=== PATIENT | female | born 1960 | race Caucasian/White ===

== ENCOUNTER 2018-03-18 11:39 | Emergency (ER) | payer OTHER ==
[2018-03-18] MEDS ORDERED: BABY ASPIRIN 81 MG CHEW PO ONE (12:01)
--- NOTE | 2018-03-18 12:01 | ERPHSYRPT ---
- History of Present Illness Time Seen by Provider: 03/18/18 11:59 Historian: patient, family Exam Limitations: no limitations Physician History: 58 y/o white female with known asthma and htn hx presents with one day h/o central substernal cp without radiation. pt has no known cardiac dz. pt did not take any asa this am. pt did take her bp med last pm. pt has no known cardiac hx. Timing/Duration: day(s) (1) Activities at Onset: none Quality: sharpness (with cough) Location: substernal, central Chest Pain Radiation: no radiation Severity of Pain-Max: mild Severity of Pain-Current: mild Modifying Factors: Improves With: coughing. Worsens With: change in position Associated Symptoms: shortness of breath, cough, No nausea, No vomiting Prior Chest Pain/Cardiac Workup: no prior chest pain, no prior cardiac workup Nitro Today/Relief: no nitro taken today Aspirin Treatment Today: no aspirin today Allergies/Adverse Reactions: No Known Drug Allergies Allergy (Unverified 03/18/18 12:11) Home Medications: Albuterol Common Canister [Proventil Common Canister] 90 mcg IH UD [History] Cetirizine HCl [Zyrtec] 10 mg PO DAILY 03/18/18 [History] Diltiazem HCl [Matzim LA] 240 mg PO HS 03/18/18 [History] Mometasone/Formoterol [Dulera 100 Mcg/5 Mcg Inhaler] 100 mg IH DAILY 03/18/18 [ History] - Review of Systems Constitutional: No Symptoms Eyes: No Symptoms Ears, Nose, & Throat: No Symptoms Respiratory: Cough, Wheezing Cardiac: Chest Pain (with coughing) Abdominal/Gastrointestinal: No Symptoms, No Abdominal Pain, No Nausea, No Vomiting, No Diarrhea Genitourinary Symptoms: No Symptoms, No Dysuria, No Frequency, No Hematuria Musculoskeletal: No Symptoms Skin: No Symptoms Neurological: No Symptoms Psychological: No Symptoms Endocrine: No Symptoms Hematologic/Lymphatic: No Symptoms Immunological/Allergic: No Symptoms All Other Systems: Reviewed and Negative - Past Medical History Neurological History: No Pertinent History ENT History: No Pertinent History Cardiac History: Hypertension Respiratory History: Asthma Endocrine Medical History: No Pertinent History Musculoskeletal History: No Pertinent History GI Medical History: No Pertinent History History: No Pertinent History Psycho-Social History: No Pertinent History Female Reproductive Disorders: No Pertinent History - Past Surgical History Neuro Surgical History: No Pertinent History Cardiac: No Pertinent History Respiratory: No Pertinent History Gastrointestinal: No Pertinent History Genitourinary: No Pertinent History Musculoskeletal: No Pertinent History Female Surgical History: No Pertinent History - Nursing Vital Signs Nursing Vital Signs: Initial Vital Signs Temperature 98 F 03/18/18 11:59 Pulse Rate 89 03/18/18 11:59 Respiratory Rate 18 03/18/18 11:59 Blood Pressure 181/88 03/18/18 11:59 O2 Sat by Pulse Oximetry 96 03/18/18 11:59 Pain Scale Pain Intensity 5 - Physical Exam General Appearance: no apparent distress, alert, anxiety Eye Exam: PERRL/EOMI, eyes nml inspection Ears, Nose, Throat Exam: normal ENT inspection, moist mucous membranes Neck Exam: normal inspection, non-tender, supple, full range of motion Respiratory Exam: chest tenderness (with coughing), airway intact, wheezing ( bilat exp ), No accessory muscle use, No rhonchi, No stridor Cardiovascular Exam: regular rate/rhythm, normal heart sounds, normal peripheral pulses Gastrointestinal/Abdomen Exam: soft, normal bowel sounds, No tenderness, No guarding, No rebound Pelvic Exam: not done Rectal Exam: not done Back Exam: normal inspection, normal range of motion, No CVA tenderness, No vertebral tenderness Extremity Exam: normal inspection, normal range of motion, pelvis stable Neurologic Exam: alert, oriented x 3, cooperative, sour bleaching pleater II-XII nml as tested Skin Exam: normal color, warm, dry Lymphatic Exam: No adenopathy SpO2 Interpretation: normal Oxygen Delivery: Room Air - Course Nursing assessment & vital signs reviewed: Yes EKG Interpreted by Me: RATE ([id number]), Sinus Rhythm, NORMAL INTERVALS, NORMAL QRS, Non-specific ST Changes, Other (sI/QIII pattern; no acute ischemic changes) Ordered Tests: Active Orders 24 hr Category Date Time Status Roofer Applicator STAT Care 03/18/18 12:02 Active EKG-ER Only STAT Care 03/18/18 12:01 Active IV Insertion STAT Care 03/18/18 12:01 Active Pulse Oximetry (ED) STAT Care 03/18/18 12:01 Active CHEST 1 VIEW (PORTABLE) Stat Exams 03/18/18 12:02 Completed CBC W DIFF Stat Lab 03/18/18 12:01 Completed CMP Stat Lab 03/18/18 12:01 Completed D-DIMER QUANTITATION Stat Lab 03/18/18 12:01 Completed NT PRO BNP Stat Lab 03/18/18 12:01 Completed PROTIME WITH INR Stat Lab 03/18/18 12:01 Completed TROPONIN Q3H Lab 03/18/18 12:15 Completed TROPONIN Q3H Lab 03/18/18 15:15 Ordered TROPONIN Q3H Lab 03/18/18 18:15 Ordered TROPONIN Q3H Lab 03/18/18 21:15 Ordered TROPONIN Q3H Lab 03/19/18 00:15 Ordered Peak Expiratory Flow Rate ONCE RT 03/18/18 12:14 Active Respiratory Nebulizer STAT RT 03/18/18 12:14 Completed Respiratory Therapy Assessment DAILY RT 03/18/18 12:14 Active Medication Summary Generic Name Dose Route Start Last Admin Trade Name Freq PRN Reason Stop Dose Admin Nitroglycerin 0.4 mg 03/18/18 12:14 03/18/18 12:30 Nitrostat 0.4 Mg Tablet SL 04/17/18 12:13 0.4 mg PRN PRN Administration CHEST PAIN Discontinued Medications Generic Name Dose Route Start Last Admin Trade Name Freq PRN Reason Stop Dose Admin Albuterol Sulfate 2.5 mg 03/18/18 12:14 03/18/18 12:15 Proventil 2.5 Mg/3 Ml Neb IH 03/18/18 12:15 2.5 mg STAT ONE Administration Albuterol Sulfate Confirm 03/18/18 12:13 Proventil 2.5 Mg/3 Ml Neb Administered 03/18/18 12:14 Dose 2.5 mg IH .STK-MED ONE Aspirin 324 mg 03/18/18 12:01 03/18/18 12:30 Baby Aspirin 81 Mg Chew PO 03/18/18 12:02 324 mg STAT ONE Administration Aspirin Confirm 03/18/18 12:28 Baby Aspirin 81 Mg Chew Administered 03/18/18 12:29 Dose 81 mg .ROUTE .STK-MED ONE Methylprednisolone Sodium Succinate 125 mg 03/18/18 12:15 03/18/18 12:30 Solu-Medrol 125 Mg IV 03/18/18 12:16 125 mg STAT ONE Administration Methylprednisolone Sodium Succinate Confirm 03/18/18 12:28 Solu-Medrol 125 Mg Administered 03/18/18 12:29 Dose 125 mg .ROUTE .STK-MED ONE Nitroglycerin Confirm 03/18/18 12:28 Nitrostat 0.4 Mg (Ed) Administered 03/18/18 12:29 Dose 0.4 mg SL .STK-MED ONE Lab/Rad Data: Laboratory Result Diagrams 03/18/18 12:01 03/18/18 12:01 Laboratory Results 03/18/18 03/18/18 03/18/18 Range/Units 12:15 12:01 12:01 WBC (4.0-10.5) K/mm3 RBC (4.1-5.4) M/mm3 Hgb (12.0-16.0) gm/dl Hct (35-47) % MCV (78-100) fl MCH (26-32) pg MCHC (32-36) g/dl RDW (11.5-14.0) % Plt Count (150-450) K/mm3 MPV (6-9.5) fl Gran % (36.0-66.0) % Eos # (Auto) (0-0.5) Absolute Lymphs (auto) (1.0-4.6) Absolute Monos (auto) (0.0-1.3) Lymphocytes % (24.0-44.0) % Monocytes % (0.0-12.0) % Eosinophils % (0.00-5.0) % Basophils % (0.0-0.4) % Absolute Granulocytes (1.4-6.9) Basophils # (0-0.4) PT 12.2 (9.95-12.35) SECONDS INR 1.05 (0.8-3.0) D-Dimer 369 (215-500) ng/mL Sodium 144 (137-145) mmol/L Potassium 3.2 L (3.5-5.1) mmol/L Chloride 105 (98-107) mmol/L Carbon Dioxide 27 (22-30) mmol/L Anion Gap 15.8 H (5-15) MEQ/L BUN 15 (7-17) mg/dL Creatinine 0.68 (0.52-1.04) mg/dL Estimated GFR > 60.0 ML/MIN Glucose 141 H (74-106) mg/dL Calcium 9.5 (8.4-10.2) mg/dL Total Bilirubin 1.00 (0.2-1.3) mg/dL AST 25 (14-36) U/L ALT 29 (0-35) U/L Alkaline Phosphatase 97 (38-126) U/L Troponin I < 0.012 (0.000-0.034) ng/mL NT-Pro-B Natriuret Pep 244 (0-900) pg/mL Serum Total Protein 8.5 H (6.3-8.2) g/dL Albumin 4.6 (3.5-5.0) g/dL Slides for Path Review 03/18/18 Range/Units 12:01 WBC 11.0 H (4.0-10.5) K/mm3 RBC 5.18 (4.1-5.4) M/mm3 Hgb 15.6 (12.0-16.0) gm/dl Hct 47.4 H (35-47) % MCV 91.5 (78-100) fl MCH 30.1 (26-32) pg MCHC 32.9 (32-36) g/dl RDW 13.0 (11.5-14.0) % Plt Count 309 (150-450) K/mm3 MPV 9.4 (6-9.5) fl Gran % 54.6 (36.0-66.0) % Eos # (Auto) 2.44 H (0-0.5) Absolute Lymphs (auto) 1.86 (1.0-4.6) Absolute Monos (auto) 0.64 (0.0-1.3) Lymphocytes % 16.9 L (24.0-44.0) % Monocytes % 5.8 (0.0-12.0) % Eosinophils % 22.2 H (0.00-5.0) % Basophils % 0.5 (0.0-0.4) % Absolute Granulocytes 5.98 (1.4-6.9) Basophils # 0.06 (0-0.4) PT (9.95-12.35) SECONDS INR (0.8-3.0) D-Dimer (215-500) ng/mL Sodium (137-145) mmol/L Potassium (3.5-5.1) mmol/L Chloride (98-107) mmol/L Carbon Dioxide (22-30) mmol/L Anion Gap (5-15) MEQ/L BUN (7-17) mg/dL Creatinine (0.52-1.04) mg/dL Estimated GFR ML/MIN Glucose (74-106) mg/dL Calcium (8.4-10.2) mg/dL Total Bilirubin (0.2-1.3) mg/dL AST (14-36) U/L ALT (0-35) U/L Alkaline Phosphatase (38-126) U/L Troponin I (0.000-0.034) ng/mL NT-Pro-B Natriuret Pep (0-900) pg/mL Serum Total Protein (6.3-8.2) g/dL Albumin (3.5-5.0) g/dL Slides for Path Review YES - Progress Progress: improved, re-examined Air Movement: good Progress Note: 03/18/18 14:02 pt states she is feeling better. cxr-new basilar fibrosis/scarring. no acute process Blood Culture(s) Obtained: No Antibiotics given: No Counseled pt/family regarding: lab results, diagnosis, need for follow-up, rad results - Departure Time of Disposition: 14:04 Departure Disposition: Home Clinical Impression: Bronchitis Condition: Stable Critical Care Time: No Referrals: HEBER MARKS [Primary Care Provider] - Additional Instructions: drink plenty of fluids. take medications as prescribed. follow up with primary doctor for further management Prescriptions: Cefdinir 300 mg PO BID 7 Days #14 capsule Hydrocodone Bit/Acetaminophen [Hydrocodone-Acetaminophen Soln] 10 ml PO Q6H # 120 ml Prednisone 10 mg [Deltasone 10 mg] 10 mg PO TID #12 tablet
[2018-03-18] MEDS ORDERED: PROVENTIL 2.5 MG/3 ML NEB IH ONE ×2 (12:13→12:14)
[2018-03-18] MEDS ORDERED: Nitrostat 0.4 MG Tablet SL PRN (12:14)
[2018-03-18] MEDS ORDERED: solu-MEDROL 125 MG IV ONE (12:15)
--- NOTE | 2018-03-18 12:18 | XRAY ---
Indication: Short of breath. Comparison: August 29, 2016. Portable chest demonstrates new left base fibrosis/scarring. Remaining heart and lungs normal. Bony thorax intact.
[2018-03-18 12:28] LABS: BASOPHIL % 0.5 % (0.0-0.4); Basophil (Absolute #) 0.06 (0-0.4); Eosinophil % 22.2 % (0.00-5.0); Eosinophil (Absolute #) 2.44 (0-0.5); Granulocyte Absolute (ANC) 5.98 (1.4-6.9); Granulocytes % 54.6 % (36.0-66.0); Hematocrit 47.4 % (35-47); Hemoglobin 15.6 gm/dl (12.0-16.0); Lymphocyte (Absolute #) 1.86 (1.0-4.6); Lymphocytes % 16.9 % (24.0-44.0); Mean Cell Volume 91.5 fl (78-100); Mean Corpuscular Hemoglobin 30.1 pg (26-32); Mean Corpuscular Hgb Concent. 32.9 g/dl (32-36); Mean Platelet Volume 9.4 fl (6-9.5); Monocyte (Absolute #) 0.64 (0.0-1.3); Monocytes % 5.8 % (0.0-12.0); Platelet Count 309 K/mm3 (150-450); Red Blood Count 5.18 M/mm3 (4.1-5.4)
[2018-03-18] MEDS ORDERED: BABY ASPIRIN 81 MG CHEW ONE (12:28)
[2018-03-18] MEDS ORDERED: Nitrostat 0.4 MG (ED) SL ONE (12:28)
[2018-03-18] MEDS ORDERED: solu-MEDROL 125 MG ONE (12:28)
[2018-03-18 12:42] LABS: ALBUMIN 4.6 g/dL (3.5-5.0); ALKALINE PHOSPHATASE 97 U/L (38-126); ANION GAP 15.8 MEQ/L (5-15); BLOOD UREA NITROGEN 15 mg/dL (7-17); CHLORIDE 105 mmol/L (98-107); Calcium 9.5 mg/dL (8.4-10.2); Carbon Dioxide 27 mmol/L (22-30); Creatinine 1 0.68 mg/dL (0.52-1.04); Glucose 141 mg/dL (74-106); NT PRO BNP 244 pg/mL (0-900); Potassium 3.2 mmol/L (3.5-5.1); SGOT/AST 25 U/L (14-36); SGPT/ALT 29 U/L (0-35); SODIUM 144 mmol/L (137-145); Total Protein 8.5 g/dL (6.3-8.2)
[2018-03-18 12:43] LABS: INR 1.05 (0.8-3.0)
[2018-03-18 13:19] LABS: Slide Review 1 YES
[2018-03-18 14:09] VITALS: BP 176/97; PULSE 97; O2SAT 94
== END 2018-03-18 14:21 | disposition home or self-care (01) ==
LOC: ED 11:39
DX: J40 Bronchitis, not specified as acute or chronic (principal); Z79.899 Other long term (current) drug therapy; J45.909 Unspecified asthma, uncomplicated; I10 Essential (primary) hypertension
CPT/HCPCS: 36000; 36415; 71045; 80053; 83880; 84484; 85025; 85379; 85610; 93005; 93041; 94150; 94640; 96374; 99284; J2930; J7609; A9270-GY

== ENCOUNTER 2020-05-15 08:25 | Emergency (ER) | payer OTHER ==
--- NOTE | 2020-05-15 08:44 | ERPHSYRPT ---
- History of Present Illness Time Seen by Provider: 05/15/20 08:51 Source: patient Exam Limitations: no limitations Patient Subjective Stated Complaint: pt here for sudden onset of dizziness,she states she is unsteady on feet, she has had this problem before and took mecla zine [id number] Triage Nursing Assessment: pt alert, resp easy, skin w/d/p. co nasuea, she is unsteady on feet, no edema noted Physician History: Patient is a 60-year-old female presents to our ED with complaints of dizziness that occurred this morning at approximately 7am. Patient has a history of vertigo. Dizziness typically resolves after taking meclizine. Patient took a dose of meclizine however states that her symptoms have not significantly improved. Dizziness is constant. No associated numbness tingling or weakness. NO hearing difficulty or hearing loss. No dysphagia or slurred speech. No nausea or vomiting. No trauma. No headache. Symptoms are mild to moderate in intensity. Moving her head from side to side worsens symptoms. Patient denies chest pain. No shortness of breath. Patient voices no other complaints or concerns at this time. Timing/Duration: today Severity: moderate Modifying Factors: Improves With: movement Associated Symptoms: nausea, weakness (Patient states her legs feel weak. However both legs feel equally weak per patient.), No vomiting, No abdominal pain, No shortness of breath, No heartburn, No diaphoresis, No cough, No chills, No chest pain, No fever, No headaches, No loss of appetite, No malaise, No rash, No syncope, No seizure Allergies/Adverse Reactions: No Known Drug Allergies Allergy (Verified 05/15/20 08:41) Home Medications: Albuterol Common Canister [Ventolin Common Canister] 90 mcg IH UD 03/18/18 [History] Cetirizine HCl [Zyrtec] 10 mg PO DAILY 03/18/18 [History] Diltiazem HCl [Matzim LA] 240 mg PO HS 03/18/18 [History] Mometasone/Formoterol [Dulera 100 Mcg/5 Mcg Inhaler] 100 mg IH DAILY 03/18/18 [History] Metoprolol Succinate 25 mg Xl* [Toprol-Xl 25MG Tablets] 1 ea DAILY 05/15/20 [History] Simvastatin 10 mg [Zocor 10MG] 1 ea DAILY 05/15/20 [History] Hx Tetanus, Diphtheria Vaccination/Date Given: No Hx Influenza Vaccination/Date Given: Yes Hx Pneumococcal Vaccination/Date Given: Yes Immunizations Up to Date: Yes Travel Risk - International Travel Have you traveled outside of the country in past 3 weeks: No - Coronavirus Screening Are you exhibiting any of the following symptoms?: No Close contact with a COVID-19 positive Pt in past 14-21 Days: No - Review of Systems Constitutional: No Symptoms, No Fever, No Chills Eyes: No Symptoms Ears, Nose, & Throat: No Symptoms Respiratory: No Symptoms, No Cough, No Dyspnea Cardiac: No Symptoms, No Chest Pain, No Edema, No Syncope Abdominal/Gastrointestinal: No Symptoms, No Abdominal Pain, No Nausea, No Vomiting, No Diarrhea Genitourinary Symptoms: No Symptoms, No Dysuria Musculoskeletal: No Symptoms, No Back Pain, No Neck Pain Skin: No Symptoms, No Rash Neurological: No Symptoms, No Dizziness, No Focal Weakness, No Sensory Changes Psychological: No Symptoms Endocrine: No Symptoms Hematologic/Lymphatic: No Symptoms Immunological/Allergic: No Symptoms All Other Systems: Reviewed and Negative - Past Medical History Pertinent Past Medical History: Yes Neurological History: No Pertinent History ENT History: No Pertinent History Cardiac History: Hypertension Respiratory History: Asthma Endocrine Medical History: No Pertinent History Musculoskeletal History: No Pertinent History GI Medical History: No Pertinent History History: No Pertinent History Psycho-Social History: No Pertinent History Female Reproductive Disorders: No Pertinent History - Past Surgical History Past Surgical History: Yes Neuro Surgical History: No Pertinent History Cardiac: No Pertinent History Respiratory: No Pertinent History Gastrointestinal: No Pertinent History Genitourinary: No Pertinent History Musculoskeletal: No Pertinent History Female Surgical History: Section - Social History Smoking Status: Former smoker Exposure to second hand smoke: No Drug Use: none Patient Lives Alone: Yes - Female History Hx Last Menstrual Period: psot Hx Now: No - Nursing Vital Signs Nursing Vital Signs: Initial Vital Signs Temperature 97.2 F 05/15/20 08:36 Pulse Rate 62 05/15/20 08:36 Respiratory Rate 18 05/15/20 08:36 Blood Pressure 146/90 05/15/20 08:36 O2 Sat by Pulse Oximetry 98 05/15/20 08:36 Pain Scale Pain Intensity 0 - Physical Exam General Appearance: no apparent distress, alert Eye Exam: PERRL/EOMI, eyes nml inspection Ears, Nose, Throat Exam: normal ENT inspection, TMs normal, pharynx normal, moist mucous membranes Neck Exam: normal inspection, non-tender, supple, full range of motion Respiratory Exam: normal breath sounds, lungs clear, No respiratory distress Cardiovascular Exam: regular rate/rhythm, normal heart sounds, normal peripheral pulses Gastrointestinal/Abdomen Exam: soft, normal bowel sounds, No tenderness, No mass Back Exam: normal inspection, normal range of motion, No CVA tenderness, No vertebral tenderness Extremity Exam: normal inspection, normal range of motion, pelvis stable Neurologic Exam: alert, oriented x 3, cooperative, investment specialist II-XII nml as tested, normal mood/affect, sensation nml, abnormal gait, other (Hints exam negative. Patient ambulatory with assistance for balance. No focal weakness observed. Mild dysmetria [id number] of both upper extremity. As well as [id number] bilaterally. ), No motor deficits, No sensory deficit, No disoriented, No confusion, No uncooperative, No intoxicated appearance, No depressed mood/affect, No motor weakness, No facial droop, No slurred speech, No aphasia, No dysarthria, No abnormal cerebellar tests, No abnormal investment specialist II-XII, No EOM palsy Skin Exam: normal color, warm, dry, No rash Lymphatic Exam: No adenopathy SpO2 Interpretation: normal SpO2: 98 O2 Delivery: Room Air - Course Nursing assessment & vital signs reviewed: Yes EKG Interpreted by Me: RATE (62), NORMAL AXIS, NORMAL INTERVALS, NORMAL QRS - Radiology Exams Chest X-ray Interpretation: Teleradiologist Report (Portable chest x-ray unchanged demonstrating a left base discoid atelectasis/scarring and right hemidiaphragm elevation with minimal adjacent atelectasis. Remaining heart and lungs unremarkable. Bony thorax intact with minimal degenerative changes. No new acute findings.) - CT Exams Head CT Interpretation: Tele-radiologist Report (Paranasal sinus disease. Remaining CT head without contrast exam is normal.) Other CT Interpretation: Tele-radiologist Report (Normal CT neck. Incidental chronic pansinusitis and multilevel cervical degenerative spondylolysis. Minimal calcifications distal to the carotid internal carotid artery without critical stenosis or obstruction. Remaining CTA brain is negative. Incidental chronic pansinusitis.) Ordered Tests: Active Orders 24 hr Category Date Time Status Loom Cleaner STAT Care 05/15/20 08:42 Completed EKG-ER Only STAT Care 05/15/20 08:41 Completed IV Insertion STAT Care 05/15/20 08:41 Completed Pulse Oximetry (ED) STAT Care 05/15/20 08:41 Completed CHEST 1 VIEW (PORTABLE) Stat Exams 05/15/20 08:[address] ANGIOGRAPHY NECK [CT] Stat Exams 05/15/20 10:31 Completed CTA HEAD W AND/OR WO CONTRAST [CT] Stat Exams 05/15/20 10:31 Completed HEAD WITHOUT CONTRAST [CT] Stat Exams 05/15/20 08:55 Completed CBC W DIFF Stat Lab 05/15/20 08:55 Completed CMP Stat Lab 05/15/20 08:55 Completed CULTURE,URINE Stat Lab 05/15/20 08:45 Received ETHYL ALCOHOL Stat Lab 05/15/20 08:55 Completed MAGNESIUM Stat Lab 05/15/20 08:55 Completed PROTIME WITH INR Stat Lab 05/15/20 11:07 Completed PTT Stat Lab 05/15/20 11:07 Completed TROPONIN Q3H Lab 05/15/20 08:55 Completed UA W/RFX UR CULTURE Stat Lab 05/15/20 08:45 Completed Urine Triage Profile Stat Lab 05/15/20 08:45 Ordered Medication Summary Discontinued Medications Generic Name Dose Route Start Last Admin Trade Name Freq PRN Reason Stop Dose Admin Aspirin 324 mg 05/15/20 09:38 05/15/20 09:43 Baby Aspirin 81 Mg Chew PO 05/15/20 09:39 324 mg STAT ONE Administration Sodium Chloride 1,000 mls @ 100 mls/hr 05/15/20 08:45 05/15/20 08:55 Sodium Chloride 0.9% 1000 Ml IV 06/14/20 08:44 100 mls/hr .Q10H BOWEN Administration Sodium Chloride Confirm 05/15/20 08:47 Sodium Chloride 0.9% 1000 Ml Administered 05/15/20 08:48 Dose 1,000 mls @ ud .ROUTE .STK-MED ONE Lab/Rad Data: Laboratory Result Diagrams 05/15/20 08:55 05/15/20 08:55 Laboratory Results 05/15/20 05/15/20 05/15/20 Range/Units 11:07 08:55 08:55 WBC (4.0-10.5) K/mm3 RBC (4.1-5.4) M/mm3 Hgb (12.0-16.0) gm/dl Hct (35-47) % MCV (78-100) fl MCH (26-32) pg MCHC (32-36) g/dl RDW (11.5-14.0) % Plt Count (150-450) K/mm3 MPV (7.5-11.0) fl Gran % (36.0-66.0) % Eos # (Auto) (0-0.5) Absolute Lymphs (auto) (1.0-4.6) Absolute Monos (auto) (0.0-1.3) Lymphocytes % (24.0-44.0) % Monocytes % (0.0-12.0) % Eosinophils % (0.00-5.0) % Basophils % (0.0-0.4) % Absolute Granulocytes (1.4-6.9) Basophils # (0-0.4) PT 11.4 (9.95-12.35) SECONDS INR 1.01 (0.8-3.0) APTT 24.4 L (25.3-37.0) SECONDS Sodium 138 (137-145) mmol/L Potassium 3.5 (3.5-5.1) mmol/L Chloride 107 (98-107) mmol/L Carbon Dioxide 24 (22-30) mmol/L Anion Gap 10.6 (5-15) MEQ/L BUN 14 (7-17) mg/dL Creatinine 0.60 (0.52-1.04) mg/dL Estimated GFR > 60.0 ML/MIN Glucose 137 H (74-106) mg/dL Calcium 8.9 (8.4-10.2) mg/dL Magnesium 2.3 (1.6-2.3) mg/dL Total Bilirubin 0.50 (0.2-1.3) mg/dL AST 21 (14-36) U/L ALT 18 (0-35) U/L Alkaline Phosphatase 66 (38-126) U/L Troponin I < 0.012 (0.000-0.034) ng/mL Serum Total Protein 6.9 (6.3-8.2) g/dL Albumin 3.9 (3.5-5.0) g/dL Urine Color (YELLOW) Urine Appearance (CLEAR) Urine pH (5-6) Ur Specific [place] (1.005-1.025) Urine Protein (Negative) Urine Ketones (NEGATIVE) Urine Blood (0-5) [place]/ul Urine Nitrite (NEGATIVE) Urine Bilirubin (NEGATIVE) Urine Urobilinogen (0-1) mg/dL Ur Leukocyte Esterase (NEGATIVE) Urine WBC (Auto) (0-5) /HPF Urine RBC (Auto) (0-2) /HPF U Hyaline Cast (Auto) (0-2) /LPF U Epithel Cells (Auto) (FEW) /HPF Urine Bacteria (Auto) (NEGATIVE) /HPF Urine Mucus (Auto) (NEGATIVE) /HPF Urine Culture Reflexed (NO) Urine Glucose (NEGATIVE) mg/dL Ethyl Alcohol < 10 (0-10) mg/dL 05/15/20 05/15/20 Range/Units 08:55 08:45 WBC 6.4 (4.0-10.5) K/mm3 RBC 4.20 (4.1-5.4) M/mm3 Hgb 12.2 (12.0-16.0) gm/dl Hct 40.3 (35-47) % MCV 96.0 (78-100) fl MCH 29.0 (26-32) pg MCHC 30.3 L (32-36) g/dl RDW 13.7 (11.5-14.0) % Plt Count 328 (150-450) K/mm3 MPV 8.8 (7.5-11.0) fl Gran % 45.3 (36.0-66.0) % Eos # (Auto) 0.27 (0-0.5) Absolute Lymphs (auto) 2.45 (1.0-4.6) Absolute Monos (auto) 0.72 (0.0-1.3) Lymphocytes % 38.3 (24.0-44.0) % Monocytes % 11.3 (0.0-12.0) % Eosinophils % 4.2 (0.00-5.0) % Basophils % 0.9 (0.0-0.4) % Absolute Granulocytes 2.89 (1.4-6.9) Basophils # 0.06 (0-0.4) PT (9.95-12.35) SECONDS INR (0.8-3.0) APTT (25.3-37.0) SECONDS Sodium (137-145) mmol/L Potassium (3.5-5.1) mmol/L Chloride (98-107) mmol/L Carbon Dioxide (22-30) mmol/L Anion Gap (5-15) MEQ/L BUN (7-17) mg/dL Creatinine (0.52-1.04) mg/dL Estimated GFR ML/MIN Glucose (74-106) mg/dL Calcium (8.4-10.2) mg/dL Magnesium (1.6-2.3) mg/dL Total Bilirubin (0.2-1.3) mg/dL AST (14-36) U/L ALT (0-35) U/L Alkaline Phosphatase (38-126) U/L Troponin I (0.000-0.034) ng/mL Serum Total Protein (6.3-8.2) g/dL Albumin (3.5-5.0) g/dL Urine Color YELLOW (YELLOW) Urine Appearance SLIGHTLY CLOUDY (CLEAR) Urine pH 5.0 (5-6) Ur Specific [place] 1.028 (1.005-1.025) Urine Protein 30 (Negative) Urine Ketones NEGATIVE (NEGATIVE) Urine Blood NEGATIVE (0-5) [place]/ul Urine Nitrite NEGATIVE (NEGATIVE) Urine Bilirubin NEGATIVE (NEGATIVE) Urine Urobilinogen 2 (0-1) mg/dL Ur Leukocyte Esterase TRACE (NEGATIVE) Urine WBC (Auto) 6-10 (0-5) /HPF Urine RBC (Auto) 0-2 (0-2) /HPF U Hyaline Cast (Auto) 0-2 (0-2) /LPF U Epithel Cells (Auto) NONE (FEW) /HPF Urine Bacteria (Auto) NONE SEEN (NEGATIVE) /HPF Urine Mucus (Auto) SLIGHT (NEGATIVE) /HPF Urine Culture Reflexed YES (NO) Urine Glucose NEGATIVE (NEGATIVE) mg/dL Ethyl Alcohol (0-10) mg/dL - Progress Progress: improved Progress Note: Patient is finding concerning for possible posterior circulation stroke. Hints exam was negative for peripheral vertigo. Mild dysmetria observed bilaterally. NIH score was 2 per our nursing staff however it was 4 per teleneuro exam. Teleneurologist advised TPA. Risks and benefits of receiving TPA versus not receiving TPA discussed with patient and patient's daughter. They agree to have TPA administered. Living with the current deficits would not be acceptable to patient. We did discuss the risk of serious intracranial hemorrhage due to TPA administration. We also discussed the possibility of severe angioedema due to TPA administration. I agreed with the plan of care to administer TPA. Teleneuro physician is Dr. Darrel Clifton MD 05/15/20 12:12 05/15/20 12:16 05/15/20 13:55 Patient reassessed. Dizziness significantly improved. Repeat neuro exam appears to be improved as well. Patient ambulated with a normal gait. She did not require assist. CTA head neck were negative for critical stenosis /obstruction. Patient transferred to [facility] for further evaluation and treatment. Counseled pt/family regarding: lab results, diagnosis, need for follow-up, rad results - Departure Departure Disposition: Transfer (Transfer to [facility] intensive care unit.) Clinical Impression: Dizziness, Sinus disease, Stroke Condition: Stable Critical Care Time: No Referrals: SHANIQUE REDMOND [Primary Care Provider] -
[2020-05-15] MEDS ORDERED: Sodium Chloride 0.9% 1000 ML 1,000 ML IV SCH (08:45)
[2020-05-15] MEDS ORDERED: Sodium Chloride 0.9% 1000 ML 1,000 ML ONE (08:47)
[2020-05-15 09:01] LABS: Absolute Neutrophil Ct (ANC) 2.89 (1.4-6.9); BASOPHIL % 0.9 % (0.0-0.4); Basophil (Absolute #) 0.06 (0-0.4); Eosinophil % 4.2 % (0.00-5.0); Eosinophil (Absolute #) 0.27 (0-0.5); Hematocrit 40.3 % (35-47); Hemoglobin 12.2 gm/dl (12.0-16.0); Lymphocyte (Absolute #) 2.45 (1.0-4.6); Lymphocytes % 38.3 % (24.0-44.0); Mean Corpuscular Hgb Concent. 30.3 g/dl (32-36); Mean Platelet Volume 8.8 fl (7.5-11.0); Monocyte (Absolute #) 0.72 (0.0-1.3); Monocytes % 11.3 % (0.0-12.0); Neutrophil % 45.3 % (36.0-66.0); Platelet Count 328 K/mm3 (150-450); Red Cell Distribution Width 13.7 % (11.5-14.0); White Blood Count 6.4 K/mm3 (4.0-10.5)
[2020-05-15 09:08] LABS: Appearance SLIGHTLY CLOUDY (CLEAR); Bilirubin NEGATIVE (NEGATIVE); Blood NEGATIVE Ery/ul (0-5); Glucose NEGATIVE (NEGATIVE); Hyaline Casts 0-2 /LPF (0-2); Ketones NEGATIVE (NEGATIVE); Leukocyte Esterase TRACE (NEGATIVE); Mucus SLIGHT /HPF (NEGATIVE); Nitrite NEGATIVE (NEGATIVE); Protein,Urine Dip 30 (Negative); RBC 0-2 /HPF (0-2); Specific Gravity 1.028 (1.005-1.025); Urobilinogen 2 mg/dL (0-1)
--- NOTE | 2020-05-15 09:08 | XRAY ---
Indication: Dizziness. Comparison: November 07, 2019. Portable chest unchanged again demonstrating left base discoid atelectasis/scarring and right hemidiaphragm elevation with minimal adjacent atelectasis. Remaining heart and lungs unremarkable. Bony thorax intact with minimal degenerative changes. No new/acute findings.
[2020-05-15 09:10] LABS: Bacteria NONE SEEN /HPF (NEGATIVE)
[2020-05-15 09:28] LABS: ALBUMIN 3.9 g/dL (3.5-5.0); ALKALINE PHOSPHATASE 66 U/L (38-126); ANION GAP 10.6 MEQ/L (5-15); BLOOD UREA NITROGEN 14 mg/dL (7-17); CHLORIDE 107 mmol/L (98-107); Calcium 8.9 mg/dL (8.4-10.2); Carbon Dioxide 24 mmol/L (22-30); EST GLOMERULAR FILTRATION RATE > 60.0 ML/MIN; ETHYL ALCOHOL < 10 mg/dL (0-10); Glucose 137 mg/dL (74-106); MAGNESIUM 2.3 mg/dL (1.6-2.3); Potassium 3.5 mmol/L (3.5-5.1); SGOT/AST 21 U/L (14-36); SGPT/ALT 18 U/L (0-35); SODIUM 138 mmol/L (137-145); Total Protein 6.9 g/dL (6.3-8.2)
--- NOTE | 2020-05-15 09:33 | XRAY ---
Indication: Dizziness. Multiple contiguous axial images obtained through the head without contrast. Comparison: None Normal appearing brain parenchyma, ventricles, and bony calvarium. Moderate/significant mucosal thickening of both ethmoid/left sphenoid sinuses. Mastoid air cells are clear. Impression: Paranasal sinus disease. Remaining CT head without contrast exam is normal.
[2020-05-15] MEDS ORDERED: BABY ASPIRIN 81 MG CHEW PO ONE (09:38)
[2020-05-15] MEDS ORDERED: Activase 100 MG IV STA (11:00)
[2020-05-15 11:16] LABS: INR 1.01 (0.8-3.0); PROTIME 11.4 SECONDS (9.95-12.35)
[2020-05-15 11:19] LABS: PTT 24.4 SECONDS (25.3-37.0)
[2020-05-15 12:57] VITALS: BP 149/94; PULSE 75
--- NOTE | 2020-05-15 13:42 | XRAY ---
Indication: Dizziness. Lightheaded. Conventional contrast enhanced CTA neck performed using 80 cc Isovue 370 contrast. Two-dimensional sagittal and coronal reformatted images obtained. Additional 3-dimensional reformatted images obtained using a separate workstation. Visualized aortic arch demonstrates normal branching and widely patent right brachiocephalic, left common carotid, and left subclavian arteries. Both common carotid, carotid bulb, internal carotid, and external carotid arteries are widely patent without AV malformation. Verbal arteries are bilaterally symmetric with the right slightly larger in caliber. No stenosis, obstruction, or AV malformation. Visualized soft tissues demonstrates scattered benign subcentimeter cervical and submandibular lymph nodes. Thyroid gland enhances homogeneously. Supra and infraglottic airway are widely patent. Cervical spine intact with mild/moderate C4-C7 degenerative changes. There is moderate/significant mucoperiosteal thickening of both maxillary/both ethmoid, and left sphenoid sinuses. Lung apices are clear. CT head reported separately. Impression: 1. Normal CTA neck. 2. Incidental chronic pansinusitis and multilevel cervical degenerative spondylosis.
--- NOTE | 2020-05-15 13:47 | XRAY ---
Indication: Dizziness. Lightheaded. Conventional contrast enhanced CTA head performed using 80 cc Isovue 370 contrast. Two-dimensional sagittal and coronal reformatted images obtained. Additional 3-dimensional reformatted images obtained using a separate workstation. Distal internal carotid arteries are bilaterally symmetric with minimal calcifications in the left carotid siphon. No critical stenosis, obstruction, or AV malformation. Normal carotid terminus with normal branching A1 and M1 segments bilaterally. More distal anterior cerebral, middle cerebral, and anterior communicating arteries are normal in CTA appearance. Posterior circulation demonstrates normal CTA appearance to the basilar artery, posterior cerebral, and superior cerebellar arteries. Whole brain images are negative for abnormal enhancing intra or extra-axial mass. There is moderate/significant mucoperiosteal thickening of both maxillary/both ethmoid, and left sphenoid sinuses. CT head without contrast exam reported separately. Impression: 1. Minimal calcifications distal left carotid internal carotid artery without critical stenosis/obstruction. 2. Remaining CTA brain is negative. 3. Incidental chronic pansinusitis.
[2020-05-15 13:57] VITALS: O2SAT 98
[2020-05-15 18:08] LABS: Amphetamine,Urine NEGATIVE (NEGATIVE); Barbiturate,Urine NEGATIVE (NEGATIVE); Benzodiazepine,Urine NEGATIVE (NEGATIVE); Cocaine,Urine NEGATIVE (NEGATIVE); Methadone,Urine NEGATIVE (NEGATIVE); Opiate,Urine NEGATIVE (NEGATIVE); PCP,Urine NEGATIVE (NEGATIVE); THC,Urine NEGATIVE (NEGATIVE)
== END 2020-05-15 13:20 | disposition short-term general hospital (02) ==
LOC: ED 08:25
DX: I63.9 Cerebral infarction, unspecified (principal); R42 Dizziness and giddiness; J34.9 Unspecified disorder of nose and nasal sinuses; R11.0 Nausea; R53.1 Weakness; I10 Essential (primary) hypertension; Z79.899 Other long term (current) drug therapy
CPT/HCPCS: 36000; 36415; 70450; 70496; 70498; 71045; 80053; 80307; 81001; 83735; 84484; 85025; 85610; 85730; 87086; 93005; 93041; 94760; 96360; 99285; 99291; G0480; Q3014; J2997; A9270-GY

== ENCOUNTER 2021-04-06 10:31 | Emergency (ER) | payer OTHER ==
[2021-04-06 10:42] VITALS: O2SAT 98
[2021-04-06] MEDS ORDERED: PERCOCET TABLET 5/325MG PO ONE (10:47)
[2021-04-06] MEDS ORDERED: PERCOCET TABLET 5/325MG ONE (10:52)
--- NOTE | 2021-04-06 11:09 | ERPHSYRPT ---
- History of Present Illness Time Seen by Provider: 04/06/21 10:45 Source: patient Exam Limitations: no limitations Patient Subjective Stated Complaint: Pt states "I slipped on the ice a week ago and my lower back and right knee hurts." Triage Nursing Assessment: Pt presented alert and oriented X 3, skin pwd Pt ambulates with an upright steady gait, able to speak in clear full sentences pt in no apparent respiratory distress. Physician History: 61 years old female presented in the ER with chief complaint of right knee and tailbone area pain for 1 week after she slipped on ice and twisted her right knee and landed on low back/coccyx area. Since then patient is having moderate intensity sharp pain with ambulation in the knee and also in the coccyx area. Minimal swelling of right knee. Intact range of motion. Method of Injury: fell Occurred: days ago (7) Quality: sharpness Severity of Pain-Max: moderate Severity of Pain-Current: moderate Lower Extremities Pain: knee: right Modifying Factors: Improves With: immobilization. Worsens With: movement Allergies/Adverse Reactions: No Known Drug Allergies Allergy (Verified 05/15/20 08:41) Home Medications: Albuterol Common Canister [Ventolin Common Canister] 90 mcg IH UD 03/18/18 [History] Cetirizine HCl [Zyrtec] 10 mg PO DAILY 03/18/18 [History] Diltiazem HCl [Matzim LA] 240 mg PO HS 03/18/18 [History] Mometasone/Formoterol [Dulera 100 Mcg/5 Mcg Inhaler] 100 mg IH DAILY 03/18/18 [History] Metoprolol Succinate 25 mg Xl* [Toprol-Xl 25MG Tablets] 1 ea DAILY 05/15/20 [History] Simvastatin 10 mg [Zocor 10MG] 1 ea DAILY 05/15/20 [History] Hx Tetanus, Diphtheria Vaccination/Date Given: No Hx Influenza Vaccination/Date Given: Yes Hx Pneumococcal Vaccination/Date Given: Yes Immunizations Up to Date: Yes Travel Risk - International Travel Have you traveled outside of the country in past 3 weeks: No - Coronavirus Screening Are you exhibiting any of the following symptoms?: No Close contact with a COVID-19 positive Pt in past 14-21 Days: No - Vaccine Status Have you recieved a Covid-19 vaccination: Yes 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 - Vaccination Dates Dates if Unknown: 2020 - Past Medical History Pertinent Past Medical History: Yes Neurological History: No Pertinent History ENT History: No Pertinent History Cardiac History: Hypertension Respiratory History: Asthma Endocrine Medical History: No Pertinent History Musculoskeletal History: No Pertinent History GI Medical History: No Pertinent History History: No Pertinent History Psycho-Social History: No Pertinent History Female Reproductive Disorders: No Pertinent History - Past Surgical History Past Surgical History: Yes Neuro Surgical History: No Pertinent History Cardiac: No Pertinent History Respiratory: No Pertinent History Gastrointestinal: No Pertinent History Genitourinary: No Pertinent History Musculoskeletal: No Pertinent History Female Surgical History: Section - Social History Smoking Status: Former smoker Exposure to second hand smoke: No Drug Use: none Patient Lives Alone: Yes - Female History Hx Now: No - Nursing Vital Signs Nursing Vital Signs: Initial Vital Signs Temperature 97.7 F 04/06/21 10:38 Pulse Rate 90 04/06/21 10:38 Respiratory Rate 20 04/06/21 10:38 Blood Pressure 193/91 04/06/21 10:38 O2 Sat by Pulse Oximetry 98 04/06/21 10:38 Pain Scale Pain Intensity 5 - Physical Exam General Appearance: no apparent distress, alert, anxiety Eyes, Ears, Nose, Throat Exam: normal ENT inspection Neck Exam: normal inspection, non-tender, supple, full range of motion Cardiovascular/Respiratory Exam: normal breath sounds, regular rate/rhythm Back Exam: normal inspection, normal range of motion, point tenderness (Coccyx) Hips Exam: bilateral: non-tender, normal inspection, normal range of motion Legs Exam: bilateral leg: non-tender, normal inspection, normal range of motion, no evidence of injury Knees Exam: right knee: bone tenderness (Suprapatellar), joint effusion, pain, soft tissue tenderness, left knee: non-tender, bilateral knee: normal inspection, normal range of motion, no evidence of injury Ankle Exam: bilateral ankle: non-tender, normal inspection, normal range of motion Neuro/Tendon Exam: normal sensation, normal motor functions Mental Status Exam: alert, oriented x 3, cooperative Skin Exam: normal color SpO2 Interpretation: normal SpO2: 98 O2 Delivery: Room Air Ordered Tests: Active Orders 24 hr Category Date Time Status KNEE (3 VIEWS) Stat Exams 04/06/21 Taken SACRUM AND COCCYX Stat Exams 04/06/21 Taken Medication Summary Discontinued Medications Generic Name Dose Route Start Last Admin Trade Name Surinder PRN Reason Stop Dose Admin Oxycodone/Acetaminophen 1 tab 04/06/21 10:47 04/06/21 10:55 Oxycodone Hcl/Apap 5 Mg/325 Mg Tablet PO 04/06/21 10:48 Not Given STAT ONE Oxycodone/Acetaminophen Confirm 04/06/21 10:52 Oxycodone Hcl/Apap 5 Mg/325 Mg Tablet Administered 04/06/21 10:53 Dose 1 tab .ROUTE .STK-MED ONE - Progress Progress: improved Progress Note: 04/06/21 11:47 given symptomatic treatment, feeling better , x rays reviewed by me no obvious fx knee but questionable fx coccyx, recommended ortho follow up and tylenol as needed. Counseled pt/family regarding: diagnosis, need for follow-up, rad results - Departure Departure Disposition: Home Clinical Impression: Knee sprain Qualifiers: Encounter type: initial encounter Involved ligament of knee: unspecified ligament Laterality: right Qualified Code(s): S83.91XA - Sprain of unspecified site of right knee, initial encounter Fractured coccyx Qualifiers: Encounter type: initial encounter Fracture type: closed Qualified Code(s): S32.2XXA - Fracture of coccyx, initial encounter for closed fracture Condition: Stable Critical Care Time: No Referrals: SHANIQUE REDMOND [Primary Care Provider] - Follow Up with PCP/3 days ORTHO - TOMMY CARD NP [NON-STAFF PHY W/O PRIVILEGES] - Follow up/PCP as directed (In 2 days for reevaluation) Instructions: Knee Sprain (DC), Coccyx Fracture (DC) Additional Instructions: Take Tylenol/ibuprofen as needed for pain. Avoid exertional activity. Follow- up with primary care/orthopedic surgery for reevaluation early next week. Return to ER for worsening pain.
[2021-04-06 11:34] VITALS: BP 155/83; PULSE 86
--- NOTE | 2021-04-06 19:22 | XRAY ---
Indication: Pain following fall one week ago. Comparison: None 3 view right knee demonstrates osteopenia and mild tricompartmental degenerative changes. No other bony, articular, or soft tissue abnormalities.
--- NOTE | 2021-04-06 19:24 | XRAY ---
Indication: Pain following fall one week ago. Comparison: None 3 view sacrum/coccyx obtained. Query nondisplaced nonangulated distal sacral fracture. Elsewhere osteopenia and lower lumbar degenerative changes greatest at lumbosacral junction. No other bony, articular, or soft tissue abnormalities.
== END 2021-04-06 12:04 | disposition home or self-care (01) ==
LOC: ED 10:31
DX: S83.91XA Sprain of unspecified site of right knee, initial encounter (principal); S32.2XXA Fracture of coccyx, initial encounter for closed fracture; W00.0XXA Fall on same level due to ice and snow, initial encounter; I10 Essential (primary) hypertension; Z79.899 Other long term (current) drug therapy
CPT/HCPCS: 72220; 73562; 99284; A9270-GY

== ENCOUNTER 2022-07-13 20:28 | Emergency (ER) | payer OTHER ==
[2022-07-13] MEDS ORDERED: Vibramycin 100 MG PO ONE (21:03)
[2022-07-13] MEDS ORDERED: solu-MEDROL 125 MG, Sterile H2O 10 ml 2 ML IJ ONE ×2 (21:03)
[2022-07-13] MEDS ORDERED: HYDROCODONE-ACETAMIN 2.5-108/5 ML SOLUTION PO STA (21:04)
[2022-07-13] MEDS ORDERED: solu-MEDROL 125 MG, Sterile H2O 10 ml 2 ML IM ONE ×2 (21:09)
[2022-07-13] MEDS ORDERED: Vibramycin 100 MG ONE (21:12)
[2022-07-13] MEDS ORDERED: solu-MEDROL ONE (21:12)
[2022-07-13] MEDS ORDERED: Sterile H2O 10 ml IJ ONE (21:12)
[2022-07-13] MEDS ORDERED: HYDROCODONE-ACETAMIN 2.5-108/5 ML SOLUTION ONE (21:12)
--- NOTE | 2022-07-13 21:12 | ERPHSYRPT ---
- History of Present Illness Time Seen by Provider: 07/13/22 20:29 Source: patient Exam Limitations: no limitations Patient Subjective Stated Complaint: pt states she has had a cough that has been getting gradually worse over last 2 weeks. today has increased cough and whe ezing today. Triage Nursing Assessment: pt alert and oriented, answers questions approp. pt ambulatory with steady gait noted. respirations nonlabored. exp wheezes noted to rt side, skin pink dry and warm. Physician History: 62 years old female with history of asthma, TIA presented in the ER with 2 weeks history of cough congestion initially dry and gradually having clear to yellow sputum moderate in amount without associated chest pain palpitations or shortness of breath. She has been trying [id number] medication with no significant relief. She has been using inhalers which does help but coughing gets worse at nighttime and cannot have enough rest and wants some relief. Patient just wants steroids and no imaging/lab work. Timing/Duration: week(s) (2), gradual onset, worse Cough Quality/Degree: moderate, productive cough Possible Cause: unknown cause Modifying Factors: Improves With: albuterol inhaler. Worsens With: coughing Associated Symptoms: cough, nasal congestion, sinus infection, sore throat, wheezing, No fever, No chest pain/soreness, No dizziness, No earache, No facial pain, No headache, No lightheadedness, No muscle aches, No shortness of breath Allergies/Adverse Reactions: No Known Drug Allergies Allergy (Verified 05/15/20 08:41) Home Medications: Albuterol Common Canister [Ventolin Common Canister] 90 mcg IH UD 03/18/18 [History] Cetirizine HCl [Zyrtec] 10 mg PO DAILY 03/18/18 [History] Diltiazem HCl [Matzim LA] 240 mg PO HS 03/18/18 [History] Mometasone/Formoterol [Dulera 100 Mcg/5 Mcg Inhaler] 100 mg IH DAILY 03/18/18 [History] Metoprolol Succinate 25 mg Xl* [Toprol-Xl 25MG Tablets] 1 ea DAILY 05/15/20 [History] Simvastatin 10 mg [Zocor 10MG] 1 ea DAILY 05/15/20 [History] Hx Tetanus, Diphtheria Vaccination/Date Given: Yes Hx Influenza Vaccination/Date Given: Yes Hx Pneumococcal Vaccination/Date Given: Yes Travel Risk - International Travel Have you traveled outside of the country in past 3 weeks: No - Coronavirus Screening Are you exhibiting any of the following symptoms?: No Close contact with a COVID-19 positive Pt in past 14-21 Days: No - Vaccine Status Have you recieved a Covid-19 vaccination: Yes Program Coordinator: Moderna - Vaccination Dates Date of 2cond Vaccination (if applicable): 2020 - Review of Systems Constitutional: No Symptoms Eyes: No Symptoms Ears, Nose, & Throat: Sinus Drainage, Throat Pain Respiratory: Cough, Wheezing Cardiac: No Symptoms Abdominal/Gastrointestinal: No Symptoms Genitourinary Symptoms: No Symptoms Musculoskeletal: No Symptoms Skin: No Symptoms Neurological: No Symptoms Hematologic/Lymphatic: No Symptoms - Past Medical History Pertinent Past Medical History: Yes Neurological History: TIA ENT History: No Pertinent History Cardiac History: Hypertension Respiratory History: Asthma Endocrine Medical History: No Pertinent History Musculoskeletal History: No Pertinent History GI Medical History: No Pertinent History History: No Pertinent History Psycho-Social History: No Pertinent History Female Reproductive Disorders: No Pertinent History - Past Surgical History Past Surgical History: Yes Neuro Surgical History: No Pertinent History Cardiac: No Pertinent History Respiratory: No Pertinent History Gastrointestinal: No Pertinent History Genitourinary: No Pertinent History Musculoskeletal: No Pertinent History Female Surgical History: Section - Social History Smoking Status: Never smoker Exposure to second hand smoke: No Drug Use: none Patient Lives Alone: Yes - Nursing Vital Signs Nursing Vital Signs: Initial Vital Signs Temperature 98.0 F 07/13/22 20:45 Pulse Rate 85 07/13/22 20:45 Respiratory Rate 18 07/13/22 20:45 Blood Pressure 164/73 07/13/22 20:45 O2 Sat by Pulse Oximetry 97 07/13/22 20:45 Pain Scale Pain Intensity 0 - Physical Exam General Appearance: no apparent distress, alert Eye Exam: PERRL/EOMI, eyes nml inspection Ears, Nose, Throat Exam: moist mucous membranes, pharyngeal erythema Neck Exam: normal inspection, non-tender, supple, full range of motion Respiratory Exam: wheezing (Right midlung), No chest tenderness Cardiovascular Exam: regular rate/rhythm, normal heart sounds Back Exam: normal inspection Extremity Exam: normal inspection, normal range of motion Neurologic Exam: alert, oriented x 3, cooperative Skin Exam: normal color SpO2 Interpretation: normal SpO2: 97 O2 Delivery: Room Air - Progress Progress: unchanged Air Movement: good Progress Note: 07/13/22 21:09 62 years old female with history of asthma and TIA is evaluated in the ER with worsening cough for the last 2 weeks. Having clear to yellow sputum without any difficulty breathing and does have some wheezing on exam. Patient is not short of breath, oxygen saturation around 98% on room air. Not in any distress. Recommended imaging and work-up but patient does not want to get it done as she usually gets this kind of symptoms around this time of the years with weather change and steroids usually helps. I think patient is having asthma exacerbation with bronchitis, given a shot of steroid, recommended continue with inhaler and we will also give doxycycline. She is also given liquid hydrocodone one-time dose in here for symptomatic relief. Since we are not doing any work-up as per patient request, she is counseled thoroughly with symptoms/signs of worsening needing return to ER which she seems understanding. She would follow-up with her primary care early next week. Blood Culture(s) Obtained: No Antibiotics given: Yes Counseled pt/family regarding: diagnosis, need for follow-up Medical Desision Making - Discussion of managment Agreed on:: Treatment plan, need for follow-up - Risk of complications The pt has a mod risk of morbidity or mortality based on: Need for prescription drug management - Departure Departure Disposition: Home Clinical Impression: Bronchitis Condition: Stable Critical Care Time: No Referrals: SHANIQUE REDMOND [Primary Care Provider] - Follow up with PCP 2 days Instructions: Cough, Adult (DC) Additional Instructions: Continue with your inhalers. Follow-up with primary care for reevaluation. Return to ER for worsening cough or if having chest pain, difficulty breathing, palpitations, fever chills etc. Prescriptions: Prednisone 20 mg [Deltasone 20 mg] 60 mg PO DAILY 5 Days #15 tablet Doxycycline Hyclate 100 mg [Vibramycin 100 MG] 100 mg PO BID #14 tab
[2022-07-13 21:40] VITALS: BP 150/100; PULSE 80; O2SAT 95
== END 2022-07-13 21:33 | disposition home or self-care (01) ==
LOC: ED 20:28
DX: J40 Bronchitis, not specified as acute or chronic (principal); R05.9 Cough, unspecified; I10 Essential (primary) hypertension; Z79.899 Other long term (current) drug therapy
CPT/HCPCS: 96372; 99283; J2930; A9270-GY

== ENCOUNTER 2023-10-31 09:27 | Emergency (ER) | payer OTHER ==
[2023-10-31 09:38] VITALS: TEMP 97.2
--- NOTE | 2023-10-31 09:47 | ERPHSYRPT ---
- History of Present Illness Time Seen by Provider: 10/31/23 09:40 Source: patient Exam Limitations: no limitations Patient Subjective Stated Complaint: C/O left forearm pain. Patient indicates she think she injured it approx 2 weeks ago but is unsure how; she noticed brui sing and pain there at that time. Pain has not resolved and is now tender to touch. Triage Nursing Assessment: Patient ambulated back to ER without difficulties. She is alert and oriented. Faded bruising noted to left anterior wrist. No other skin alterations present at this time. No swelling. Patient with full ROM to fingers, hand, wrist, elbow. Physician History: 63yo f presents via private vehicle for left forearm pain x 2wks. Pt has hx of osteopenia and TIA currently on aspirin/plavix. 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 Pt reports she has been able to complete all of her normal acitivities of daily living, reports no weakness in the LUE, reports normal sensation in the LUE. Pt denies any falls or trauma to the extremity. Occurred: other (2wks ago) Method of Injury: unknown Quality: aching Severity of Pain-Max: mild Severity of Pain-Current: mild Extremities Pain Location: forearm: left Modifying Factors: Improves With: nothing Associated Symptoms: none Allergies/Adverse Reactions: No Known Drug Allergies Allergy (Verified 05/15/20 08:41) Home Medications: Albuterol Common Canister [Ventolin Common Canister] 90 mcg IH UD 03/18/18 [History] Cetirizine HCl [Zyrtec] 10 mg PO DAILY 03/18/18 [History] Mometasone/Formoterol [Dulera 100 Mcg/5 Mcg Inhaler] 100 mg IH DAILY 03/18/18 [History] dilTIAZem HCL [Matzim LA] 240 mg PO HS 03/18/18 [History] Metoprolol Succinate 25 mg Xl* [Toprol-Xl 25MG Tablets] 1 ea DAILY 05/15/20 [History] Aspirin EC 81 mg [Ecotrin 81 mg] 81 mg PO DAILY 10/31/23 [History] Atorvastatin Calcium [Lipitor] 20 mg PO DAILY 10/31/23 [History] Clopidogrel Bisulfate [PLAVIX Tablet] 75 mg PO DAILY 10/31/23 [History] Hx Tetanus, Diphtheria Vaccination/Date Given: Yes Hx Influenza Vaccination/Date Given: Yes Hx Pneumococcal Vaccination/Date Given: Yes Immunizations Up to Date: Yes Travel Risk - International Travel Have you traveled outside of the country in past 3 weeks: No - Emerging Infectious Disease Are you exhibiting symptoms associated with any current EIDs: No - Review of Systems Constitutional: No Symptoms Respiratory: No Symptoms Cardiac: No Symptoms Musculoskeletal: Myalgias, No Deformity, No Fall, No Injury, No Joint Redness, No Joint Pain Skin: No Symptoms - Past Medical History Pertinent Past Medical History: Yes Neurological History: TIA ENT History: No Pertinent History Cardiac History: Hypertension Respiratory History: Asthma Endocrine Medical History: No Pertinent History Musculoskeletal History: No Pertinent History GI Medical History: No Pertinent History History: No Pertinent History Psycho-Social History: No Pertinent History Female Reproductive Disorders: No Pertinent History - Past Surgical History Past Surgical History: Yes Neuro Surgical History: No Pertinent History Cardiac: No Pertinent History Respiratory: No Pertinent History Gastrointestinal: No Pertinent History Genitourinary: No Pertinent History Musculoskeletal: No Pertinent History Female Surgical History: Section - Social History Smoking Status: Never smoker Exposure to second hand smoke: No Drug Use: none Patient Lives Alone: Yes - Social Determinants of Health Will the patient participate in the screening: Yes Do you worry about a steady place to live?: No Do you have any problems with any of the following?: No known problems In the past 12 months,have you had to go without utilities?: No Transportation Issues: No Has anyone in your support network made you feel unsafe?: No Have you or anyone in your house had to go without enough: No - Nursing Vital Signs Nursing Vital Signs: Initial Vital Signs Temperature 97.2 F 10/31/23 09:28 Pulse Rate 67 10/31/23 09:28 Respiratory Rate 17 10/31/23 09:28 Blood Pressure 144/74 10/31/23 09:28 O2 Sat by Pulse Oximetry 99 10/31/23 09:28 Pain Scale Pain Intensity 4 - Physical Exam General Appearance: no apparent distress, alert Cardiovascular/Respiratory Exam: chest non-tender, normal breath sounds, regular rate/rhythm, heart sounds normal, no respiratory distress, normal peripheral pulses Shoulder Exam: normal inspection, non-tender, no evidence of injury, normal ROM Elbow/Forearm Exam: normal ROM, ecchymosis (small ecchymosis over medial forearm), soft tissue tenderness (minimal TTP over medial forearm), No abrasions, No asymmetry, No bone tenderness, No deformity, No swelling Wrist Exam: normal inspection, non-tender, no evidence of injury, normal ROM Hand Exam: normal inspection, non-tender, no evidence of injury, normal ROM Neuro/Tendon Exam: normal sensation, normal motor functions, normal tendon functions Mental Status Exam: alert, oriented x 3, cooperative Skin Exam: normal color, warm, dry SpO2 Interpretation: normal SpO2: 99 O2 Delivery: Room Air Ordered Tests: Active Orders 24 hr Category Date Time Status ELBOW (MINIMUM 3 VIEWS) Stat Exams 10/31/23 09:40 Taken FOREARM Stat Exams 10/31/23 09:40 Taken WRIST (MIN 3 VIEWS) Stat Exams 10/31/23 09:41 Taken - Progress Progress: improved Progress Note: 10/31/23 10:12 imaging of elbow, forearm, wrist not suggestive of acute fx, possible old fx of proximal radius noted w/o any displacement no pain reported on exam while at rest discussed imaging findings w/ patient differentials include: forearm fracture, forearm sprain/strain, wrist fx, elbow fx acute fx unlikely based on imaging recommend f/u w/ walk-in orthopedic clinic on 11/02/23 for further monitoring in setting of osteopenia history recommend tylenol/ice for discomfort, rest when possible return to ED if: develop numbness or weakness in the left hand/wrist/forearm, develop significant swelling in the hand/forearm, pain becomes unbearable Counseled pt/family regarding: diagnosis, need for follow-up, rad results Medical Desision Making - Diagnostic Testing Diagnostic test were ordered, analyzed, and reviewed by me: Yes Radiological Interpretation: Interpreted by me, Reviewed by me - Risk of complications Minimal Risk: Minimal risk of morbidity - Departure Departure Disposition: Home Clinical Impression: Left forearm pain Condition: Stable Critical Care Time: No Referrals: SHANIQUE REDMOND [Primary Care Provider] - Follow up/PCP as directed Additional Instructions: recommend f/u w/ walk-in orthopedic clinic on 11/02/23 for further monitoring in setting of osteopenia history recommend tylenol/ice for discomfort, rest when possible return to ED if: develop numbness or weakness in the left hand/wrist/forearm, develop significant swelling in the hand/forearm, pain becomes unbearable
[2023-10-31 10:36] VITALS: BP 122/66; PULSE 60; RESP 16; O2SAT 96
--- NOTE | 2023-10-31 21:22 | XRAY ---
Indication: Pain. Comparison: None 4 view left elbow obtained. No bony, articular, or soft tissue abnormalities.
--- NOTE | 2023-10-31 21:22 | XRAY ---
Indication: Pain. Comparison: None 2 view left forearm obtained. No bony, articular, or soft tissue abnormalities.
--- NOTE | 2023-10-31 21:24 | XRAY ---
Indication: Pain. Comparison: None 3 view left wrist demonstrates radiocarpal joint space narrowing and mild 1st metacarpal multangular degenerative changes. No other bony, articular, or soft tissue abnormalities.
== END 2023-10-31 10:35 | disposition home or self-care (01) ==
LOC: ED 09:27
DX: M79.632 Pain in left forearm (principal); I10 Essential (primary) hypertension; Z79.02 Long term (current) use of antithrombotics/antiplatelets; Z79.899 Other long term (current) drug therapy
CPT/HCPCS: 73080; 73090; 73110; 99282